=== PATIENT | female | born 1955 | race Caucasian/White ===

== ENCOUNTER 2018-07-26 10:10 | Emergency (ER) | payer OTHER, BC ==
[~2018-07-26] VITALS: Ht 162.6 cm; Wt 74.1 kg
[2018-07-26] MEDS ORDERED: HYDROcodone/acetaminophen 10/325mg tab PO ONE (10:25)
[2018-07-26] MEDS ORDERED: HYDROcodone/acetaminophen 5mg/325mg tablet PO ONE (10:50)
[2018-07-26] MEDS ORDERED: ondansetron 4mg rapidly disintigrating tab PO ONE ×2 (10:55→12:30)
[2018-07-26 11:23] VITALS: BP 112/54
[2018-07-26] MEDS ORDERED: ONDA4TAB9 PO (11:27)
[2018-07-26] MEDS ORDERED: HYDR-4383 PO (11:27)
[2018-07-26] MEDS ORDERED: morphine 4 MG/ML inj SYRINge IM ONE (12:30)
== END 2018-07-26 12:40 | disposition home or self-care (01) ==
LOC: ER 10:10
DX: S82.042A Displaced comminuted fracture of left patella, initial encounter for closed fracture (principal); G89.29 Other chronic pain; Z88.5 Allergy status to narcotic agent; Z79.899 Other long term (current) drug therapy; Z98.890 Other specified postprocedural states; W17.89XA Other fall from one level to another, initial encounter; Y93.89 Activity, other specified; Y92.89 Other specified places as the place of occurrence of the external cause; Y99.8 Other external cause status
CPT/HCPCS: 29505; 73564; 99284

== ENCOUNTER 2018-08-15 11:49 | Day surgery (SDC) | payer OTHER ==
[2018-08-14 14:11] LABS: BASOPHILS % (AUTO) 0.1 % (0-1); EOSINOPHILS # (AUTO) 0.2 X10'3 (0-0.9); EOSINOPHILS % (AUTO) 2.2 % (0-6); LYMPHOCYTES % (AUTO) 27.9 % (21-51); MEAN CORPUSCULAR HEMOGLOBIN 31.3 PG (27.0-31.0); MEAN CORPUSCULAR HGB CONC 33.2 % (33.0-36.5); MEAN CORPUSCULAR VOLUME 94.3 FL (78-98); MEAN PLATELET VOLUME 11.1 FL (7.4-10.4); MONOCYTES # (AUTO) 0.6 X10'3 (0-0.9); MONOCYTES % (AUTO) 8.3 % (2-12); NEUTROPHILS # (AUTO) 4.5 X10'3 (1.8-7.7); NEUTROPHILS % (AUTO) 61.5 % (42-75); PRE OP HEMATOCRIT 41.5 % (35.0-45.0); PRE OP HEMOGLOBIN 13.8 g/dL (12.0-16.0); PRE OP PLATELET COUNT 217 X10'3 (140-440); RED CELL DISTRIBUTION WIDTH 14.1 % (11.5-14.5)
[2018-08-14 14:27] LABS: LARGE PLATELETS FEW; PLATELET ESTIMATE NORMAL
[2018-08-14 14:29] LABS: ALBUMIN 3.9 G/DL (3.4-5.0); ALBUMIN/GLOBULIN RATIO 1.1 (1.1-1.5); ALKALINE PHOSPHATASE 83 IU/L (46-116); BLOOD UREA NITROGEN 15 MG/DL (7-18); CALCIUM 9.4 MG/DL (8.5-10.1); CHLORIDE 104 MMOL/L (99-107); PRE OP ALT 21 U/L (30-65); PRE OP ANION GAP 7 (8-16); PRE OP AST 22 U/L (10-37); PRE OP BILIRUB, TOTAL 0.4 MG/DL (0.0-1.0); PRE OP GLUCOSE 98 MG/DL (70-104); PRE OP POTASSIUM 3.6 MMOL/L (3.4-5.1); PRE OP SODIUM 141 MMOL/L (135-145); TOTAL CARBON DIOXIDE 29.7 MMOL/L (24-32); TOTAL PROTEIN 7.3 G/DL (6.4-8.2); eGFR > 90 ML/MIN
[~2018-08-15] VITALS: Ht 162.6 cm; Wt 73.9 kg
[2018-08-15] VITALS (9 sets, daily range): BP systolic 97–136; BP diastolic 44–71
[~2018-08-15 11:49] MED LIST: CALC600T12; CHOL400T14 PO; HYDR-4383 PO; ceFAZolin inj. 2,000 MG in dextrose 5%-water 50ml 50 ML IV ONE; famotidine 20mg tablet PO ONE; ringers solution, lacted 1,000 ML IV SCH
[2018-08-15] MEDS ORDERED: LIDOcaine 1% (10mg/ml) 2ml vial ONE (12:14)
[2018-08-15] MEDS ORDERED: cloNIDine hcl/PF 100mcg/ml inj ONE (13:57)
[2018-08-15] MEDS ORDERED: ROPIVAcaine 0.5% (5mg/ml) 30ml vial ONE (13:58)
[2018-08-15] MEDS ORDERED: sevoflurane 250ml liquid IH ONE (13:58)
[2018-08-15] MEDS ORDERED: propofol inj 20 ML IV ONE (13:59)
[2018-08-15] MEDS ORDERED: midazolam 2 mg/2 ml injection ONE (13:59)
[2018-08-15] MEDS ORDERED: fentaNYL/PF 50MCG/1 ML 2ML syringe ONE (13:59)
[2018-08-15] MEDS ORDERED: meperidine/PF 25mg/ml syringe IV PRN ×3 (14:50)
[2018-08-15] MEDS ORDERED: proCHLORperazine 10 MG/2 ml inj IV PRN (14:50)
[2018-08-15] MEDS ORDERED: ringers solution, lacted 1,000 ML IV SCH (14:50)
[2018-08-15] MEDS ORDERED: ondansetron/PF 4mg/2ml inj IV PRN (14:50)
[2018-08-15] MEDS ORDERED: morphine 4 MG/ML inj SYRINge IV PRN ×2 (14:50)
[2018-08-15] MEDS ORDERED: dexamethasone sod phosphate 4mg/ml inj. ONE (15:30)
[2018-08-15] MEDS ORDERED: ondansetron/PF 4mg/2ml inj ONE (15:30)
[2018-08-15] MEDS ORDERED: HYDROcodone/acetaminophen 10/325mg tab PO ONE (15:50)
== END 2018-08-15 16:46 | disposition home or self-care (01) ==
LOC: PAS 11:49
PROVIDERS: ATTEND Orthopaedic Surgery Hand Surgery
DX: S82.042A Displaced comminuted fracture of left patella, initial encounter for closed fracture (principal); Z79.891 Long term (current) use of opiate analgesic; Z87.891 Personal history of nicotine dependence; Z88.5 Allergy status to narcotic agent; Z90.89 Acquired absence of other organs; Z72.89 Other problems related to lifestyle; Z98.890 Other specified postprocedural states; Z79.899 Other long term (current) drug therapy; W19.XXXA Unspecified fall, initial encounter; Y93.89 Activity, other specified; Y92.89 Other specified places as the place of occurrence of the external cause; Y99.8 Other external cause status; Z82.0 Family history of epilepsy and other diseases of the nervous system
CPT/HCPCS: 27524; 36415; 64447; 73560; 76001; 80053; 85025; 93005; A6222; A6449; C1713; J0690; J0735; J1100; J2175; J2250; J2405; J2704; J3010; J3490; J7060; J7120; A7000; J2795